=== PATIENT | male | born 1965 | race African-American/Black ===

== ENCOUNTER 2021-01-31 02:25 | Inpatient (IN) | payer OTHER ==
[2021-01-31 09:17] VITALS: BMI 24.5
[2021-01-31] MEDS ORDERED: LOPERAMIDE HCL 2 MG CAPSULE PO PRN (14:04)
[2021-01-31] MEDS ORDERED: guaiFENesin 200 MG/10 ML 10 ML UNIT-DOSE CUPS PO PRN (14:04)
[2021-01-31] MEDS ORDERED: ACETAMINOPHEN 325 MG TABLET (FP) PO PRN (14:04)
[2021-01-31] MEDS ORDERED: MAGNESIUM CITRATE 300 ML BOTTLE PO PRN (14:04)
[2021-01-31] MEDS ORDERED: P-EPHED 60MG/TRIPROLIDI 2.5MG TABLET PO PRN (14:04)
[2021-01-31] MEDS ORDERED: MAGNESIUM HYDROX 2400MG/30ML ORAL SUSPENSION 30 ML CUP PO PRN (14:04)
[2021-01-31] MEDS ORDERED: NICOTINE POLACRILEX 2 MG GUM BUC PRN (14:04)
[2021-01-31] MEDS ORDERED: MAG HYDROX/AL HYDROX/SIMETH 30 ML UNIT-DOSE CUP PO PRN (14:04)
[2021-01-31] MEDS ORDERED: PT OWN MED DRAWER 7, Y5N ONE (14:57)
[2021-01-31] MEDS ORDERED: MASKS NR ONE (14:58)
[2021-01-31] MEDS: PRENATAL VITAMINS W/ FOLIC ACID TABLET (FP) PO SCH (15:12)
[2021-01-31 17:12] LABS: HEMATOCRIT 38.7 % (35.4-49); HEMOGLOBIN 12.7 GM/dL (11.7-16.9); MCH 31.1 pg (25.7-33.7); MCHC 32.8 g/dl (32.0-35.9); MEAN CELL VOLUME 94.7 fl (80-96); MEAN PLT VOLUME 9.1 fl (7.5-11.1); PLATELET COUNT 254 K/MM3 (134-434); RBC 4.09 M/mm3 (4.00-5.60); RDW 14.8 % (11.9-15.9); WHITE BLOOD COUNT 4.8 K/mm3 (4.0-10.0)
[2021-01-31 17:15] LABS: ALBUMIN 3.5 g/dl (3.4-5.0); BLOOD UREA NITROGEN 19.2 mg/dL (7-18); CALCIUM 9.2 mg/dL (8.5-10.1)
[2021-01-31 17:18] LABS: CREATININE 1.3 mg/dL (0.55-1.3)
[2021-01-31 17:20] LABS: BILIRUBIN,TOTAL 0.4 mg/dL (0.2-1)
[2021-01-31] MEDS: hydrOXYzine PAMOATE 25 MG CAPSULE (FP) PO SCH ×2 (18:30→21:03)
[2021-01-31] MEDS: MELATONIN 5 MG TABLETS PO SCH (21:03)
[2021-01-31] MEDS: THIAMINE HCL 100 MG TABLET (FP) PO SCH (21:03)
[2021-02-01] MEDS: hydrOXYzine PAMOATE 25 MG CAPSULE (FP) PO SCH ×2 (06:22→09:37)
[2021-02-01] MEDS: PRENATAL VITAMINS W/ FOLIC ACID TABLET (FP) PO SCH (09:36)
[2021-02-01] MEDS: NICOTINE 7 MG/24 HOURS TOPICAL PATCH TD SCH (09:37)
[2021-02-01] MEDS ORDERED: hydrOXYzine PAMOATE 25 MG CAPSULE (FP) PO PRN (10:16)
[2021-02-01 11:00] LABS: URINE APPEARANCE CLEAR; URINE BILIRUBIN NEGATIVE (NEGATIVE); URINE COLOR YELLOW; URINE GLUCOSE (UA) NEGATIVE (NEGATIVE); URINE KETONE NEGATIVE (NEGATIVE); URINE LEUK ESTERASE NEGATIVE (NEGATIVE); URINE NITRITE NEGATIVE (NEGATIVE); URINE PROTEIN NEGATIVE (NEGATIVE)
[2021-02-01] MEDS: MELATONIN 5 MG TABLETS PO SCH (22:35)
[2021-02-01] MEDS: THIAMINE HCL 100 MG TABLET (FP) PO SCH (22:35)
[2021-02-02] MEDS: PRENATAL VITAMINS W/ FOLIC ACID TABLET (FP) PO SCH (09:53)
[2021-02-02] MEDS: NICOTINE 7 MG/24 HOURS TOPICAL PATCH TD SCH (10:13)
[2021-02-02] MEDS: THIAMINE HCL 100 MG TABLET (FP) PO SCH (21:10)
[2021-02-02] MEDS: MELATONIN 5 MG TABLETS PO SCH (21:10)
[2021-02-03] MEDS: NICOTINE 7 MG/24 HOURS TOPICAL PATCH TD SCH (09:44)
[2021-02-03] MEDS: PRENATAL VITAMINS W/ FOLIC ACID TABLET (FP) PO SCH (09:44)
[2021-02-03] MEDS: MELATONIN 5 MG TABLETS PO SCH (21:53)
[2021-02-03] MEDS: THIAMINE HCL 100 MG TABLET (FP) PO SCH (21:53)
[2021-02-04] MEDS: PRENATAL VITAMINS W/ FOLIC ACID TABLET (FP) PO SCH (09:43)
[2021-02-04] MEDS: NICOTINE 7 MG/24 HOURS TOPICAL PATCH TD SCH (09:44)
[2021-02-04 14:07] LABS: SARS-CoV-2 NAA Not Detected (Not Detected)
[2021-02-04] MEDS: THIAMINE HCL 100 MG TABLET (FP) PO SCH (21:00)
[2021-02-04] MEDS: MELATONIN 5 MG TABLETS PO SCH (21:00)
[2021-02-05] MEDS: NICOTINE 7 MG/24 HOURS TOPICAL PATCH TD SCH (09:52)
[2021-02-05] MEDS: PRENATAL VITAMINS W/ FOLIC ACID TABLET (FP) PO SCH (09:52)
[2021-02-05] MEDS: MELATONIN 5 MG TABLETS PO SCH (21:40)
[2021-02-05] MEDS: THIAMINE HCL 100 MG TABLET (FP) PO SCH (21:40)
[2021-02-06] MEDS: PRENATAL VITAMINS W/ FOLIC ACID TABLET (FP) PO SCH (10:04)
[2021-02-06] MEDS: NICOTINE 7 MG/24 HOURS TOPICAL PATCH TD SCH (10:04)
[2021-02-06] MEDS: THIAMINE HCL 100 MG TABLET (FP) PO SCH (21:04)
[2021-02-06] MEDS: MELATONIN 5 MG TABLETS PO SCH (21:04)
[2021-02-07] MEDS: NICOTINE 7 MG/24 HOURS TOPICAL PATCH TD SCH (09:56)
[2021-02-07] MEDS: PRENATAL VITAMINS W/ FOLIC ACID TABLET (FP) PO SCH (09:56)
[2021-02-07] MEDS: MELATONIN 5 MG TABLETS PO SCH (21:34)
[2021-02-07] MEDS: THIAMINE HCL 100 MG TABLET (FP) PO SCH (21:34)
[2021-02-08] MEDS: PRENATAL VITAMINS W/ FOLIC ACID TABLET (FP) PO SCH (10:06)
[2021-02-08] MEDS: NICOTINE 7 MG/24 HOURS TOPICAL PATCH TD SCH (10:06)
[2021-02-08] MEDS: MELATONIN 5 MG TABLETS PO SCH (21:03)
[2021-02-08] MEDS: THIAMINE HCL 100 MG TABLET (FP) PO SCH (21:03)
[2021-02-09] MEDS: PRENATAL VITAMINS W/ FOLIC ACID TABLET (FP) PO SCH (10:55)
[2021-02-09] MEDS: NICOTINE 7 MG/24 HOURS TOPICAL PATCH TD SCH (10:56)
[2021-02-09] MEDS: THIAMINE HCL 100 MG TABLET (FP) PO SCH (21:27)
[2021-02-09] MEDS: MELATONIN 5 MG TABLETS PO SCH (21:27)
[2021-02-10] MEDS: PRENATAL VITAMINS W/ FOLIC ACID TABLET (FP) PO SCH (09:49)
[2021-02-10] MEDS: NICOTINE 7 MG/24 HOURS TOPICAL PATCH TD SCH (09:49)
[2021-02-10] MEDS ORDERED: MASKS NR ONE (17:27)
[2021-02-10] MEDS: IBUPROFEN 400 MG TABLET (FP) PO PRN (18:34)
[2021-02-10] MEDS: MELATONIN 5 MG TABLETS PO SCH (21:48)
[2021-02-10] MEDS: THIAMINE HCL 100 MG TABLET (FP) PO SCH (21:48)
[2021-02-11] MEDS: PRENATAL VITAMINS W/ FOLIC ACID TABLET (FP) PO SCH (09:52)
[2021-02-11] MEDS: NICOTINE 7 MG/24 HOURS TOPICAL PATCH TD SCH (09:53)
[2021-02-11] MEDS: THIAMINE HCL 100 MG TABLET (FP) PO SCH (21:35)
[2021-02-11] MEDS: MELATONIN 5 MG TABLETS PO SCH (21:35)
[2021-02-12] MEDS: NICOTINE 7 MG/24 HOURS TOPICAL PATCH TD SCH (10:00)
[2021-02-12] MEDS: PRENATAL VITAMINS W/ FOLIC ACID TABLET (FP) PO SCH (10:00)
[2021-02-12] MEDS: THIAMINE HCL 100 MG TABLET (FP) PO SCH (21:09)
[2021-02-12] MEDS: MELATONIN 5 MG TABLETS PO SCH (21:09)
[2021-02-13] MEDS: PRENATAL VITAMINS W/ FOLIC ACID TABLET (FP) PO SCH (09:36)
[2021-02-13] MEDS: NICOTINE 7 MG/24 HOURS TOPICAL PATCH TD SCH (09:37)
[2021-02-13] MEDS: THIAMINE HCL 100 MG TABLET (FP) PO SCH (21:08)
[2021-02-13] MEDS: MELATONIN 5 MG TABLETS PO SCH (21:09)
[2021-02-14] MEDS: PRENATAL VITAMINS W/ FOLIC ACID TABLET (FP) PO SCH (09:48)
[2021-02-14] MEDS: NICOTINE 7 MG/24 HOURS TOPICAL PATCH TD SCH (09:49)
[2021-02-14] MEDS: THIAMINE HCL 100 MG TABLET (FP) PO SCH (21:28)
[2021-02-14] MEDS: MELATONIN 5 MG TABLETS PO SCH (21:29)
[2021-02-15] MEDS: PRENATAL VITAMINS W/ FOLIC ACID TABLET (FP) PO SCH (09:47)
[2021-02-15] MEDS: NICOTINE 7 MG/24 HOURS TOPICAL PATCH TD SCH (09:47)
[2021-02-15] MEDS: MELATONIN 5 MG TABLETS PO SCH (21:03)
[2021-02-15] MEDS: THIAMINE HCL 100 MG TABLET (FP) PO SCH (21:03)
[2021-02-16] MEDS: PRENATAL VITAMINS W/ FOLIC ACID TABLET (FP) PO SCH (09:47)
[2021-02-16] MEDS: NICOTINE 7 MG/24 HOURS TOPICAL PATCH TD SCH (09:47)
[2021-02-16] MEDS: THIAMINE HCL 100 MG TABLET (FP) PO SCH (21:05)
[2021-02-16] MEDS: MELATONIN 5 MG TABLETS PO SCH (21:05)
[2021-02-17] MEDS: PRENATAL VITAMINS W/ FOLIC ACID TABLET (FP) PO SCH (09:47)
[2021-02-17] MEDS: NICOTINE 7 MG/24 HOURS TOPICAL PATCH TD SCH (09:47)
[2021-02-17] MEDS: THIAMINE HCL 100 MG TABLET (FP) PO SCH (21:04)
[2021-02-17] MEDS: MELATONIN 5 MG TABLETS PO SCH (21:04)
[2021-02-18] MEDS: PRENATAL VITAMINS W/ FOLIC ACID TABLET (FP) PO SCH (09:31)
[2021-02-18] MEDS: NICOTINE 7 MG/24 HOURS TOPICAL PATCH TD SCH (09:31)
[2021-02-18] MEDS: MELATONIN 5 MG TABLETS PO SCH (21:03)
[2021-02-18] MEDS: THIAMINE HCL 100 MG TABLET (FP) PO SCH (21:03)
[2021-02-19] MEDS: NICOTINE 7 MG/24 HOURS TOPICAL PATCH TD SCH (09:40)
[2021-02-19] MEDS: PRENATAL VITAMINS W/ FOLIC ACID TABLET (FP) PO SCH (09:40)
[2021-02-19] MEDS: THIAMINE HCL 100 MG TABLET (FP) PO SCH (21:01)
[2021-02-19] MEDS: MELATONIN 5 MG TABLETS PO SCH (21:01)
[2021-02-20] MEDS: PRENATAL VITAMINS W/ FOLIC ACID TABLET (FP) PO SCH (09:41)
[2021-02-20] MEDS: NICOTINE 7 MG/24 HOURS TOPICAL PATCH TD SCH (09:41)
[2021-02-20] MEDS: MELATONIN 5 MG TABLETS PO SCH (21:38)
[2021-02-20] MEDS: THIAMINE HCL 100 MG TABLET (FP) PO SCH (21:38)
[2021-02-21] MEDS: NICOTINE 7 MG/24 HOURS TOPICAL PATCH TD SCH (09:44)
[2021-02-21] MEDS: PRENATAL VITAMINS W/ FOLIC ACID TABLET (FP) PO SCH (09:44)
[2021-02-21] MEDS: MELATONIN 5 MG TABLETS PO SCH (21:04)
[2021-02-21] MEDS: IBUPROFEN 400 MG TABLET (FP) PO PRN (21:04)
[2021-02-21] MEDS: THIAMINE HCL 100 MG TABLET (FP) PO SCH (21:04)
[2021-02-22] MEDS: PRENATAL VITAMINS W/ FOLIC ACID TABLET (FP) PO SCH (09:43)
[2021-02-22] MEDS: NICOTINE 7 MG/24 HOURS TOPICAL PATCH TD SCH (09:44)
[2021-02-22] MEDS: THIAMINE HCL 100 MG TABLET (FP) PO SCH (21:32)
[2021-02-22] MEDS: MELATONIN 5 MG TABLETS PO SCH (21:32)
[2021-02-23] MEDS: NICOTINE 7 MG/24 HOURS TOPICAL PATCH TD SCH (09:53)
[2021-02-23] MEDS: PRENATAL VITAMINS W/ FOLIC ACID TABLET (FP) PO SCH (09:53)
[2021-02-23] MEDS: MELATONIN 5 MG TABLETS PO SCH (21:13)
[2021-02-23] MEDS: THIAMINE HCL 100 MG TABLET (FP) PO SCH (21:13)
[2021-02-23] MEDS: IBUPROFEN 400 MG TABLET (FP) PO PRN (21:13)
[2021-02-24] MEDS: NICOTINE 7 MG/24 HOURS TOPICAL PATCH TD SCH (10:00)
[2021-02-24] MEDS: PRENATAL VITAMINS W/ FOLIC ACID TABLET (FP) PO SCH (10:00)
[2021-02-24] MEDS: IBUPROFEN 400 MG TABLET (FP) PO PRN (19:47)
[2021-02-24] MEDS: THIAMINE HCL 100 MG TABLET (FP) PO SCH (21:42)
[2021-02-24] MEDS: MELATONIN 5 MG TABLETS PO SCH (21:42)
[2021-02-25] MEDS: NICOTINE 7 MG/24 HOURS TOPICAL PATCH TD SCH (09:52)
[2021-02-25] MEDS: PRENATAL VITAMINS W/ FOLIC ACID TABLET (FP) PO SCH (09:52)
[2021-02-25] MEDS: MELATONIN 5 MG TABLETS PO SCH (21:46)
[2021-02-25] MEDS: THIAMINE HCL 100 MG TABLET (FP) PO SCH (21:46)
[2021-02-26] MEDS: NICOTINE 7 MG/24 HOURS TOPICAL PATCH TD SCH (10:19)
[2021-02-26] MEDS: PRENATAL VITAMINS W/ FOLIC ACID TABLET (FP) PO SCH (10:19)
[2021-02-26] MEDS: THIAMINE HCL 100 MG TABLET (FP) PO SCH (21:03)
[2021-02-26] MEDS: MELATONIN 5 MG TABLETS PO SCH (21:03)
[2021-02-27] MEDS: PRENATAL VITAMINS W/ FOLIC ACID TABLET (FP) PO SCH (09:41)
[2021-02-27] MEDS: NICOTINE 7 MG/24 HOURS TOPICAL PATCH TD SCH (09:41)
[2021-02-27] MEDS: MELATONIN 5 MG TABLETS PO SCH (21:32)
[2021-02-27] MEDS: THIAMINE HCL 100 MG TABLET (FP) PO SCH (21:32)
[2021-02-28] MEDS: NICOTINE 7 MG/24 HOURS TOPICAL PATCH TD SCH (09:39)
[2021-02-28] MEDS: PRENATAL VITAMINS W/ FOLIC ACID TABLET (FP) PO SCH (09:39)
[2021-02-28] MEDS: MELATONIN 5 MG TABLETS PO SCH (21:03)
[2021-02-28] MEDS: THIAMINE HCL 100 MG TABLET (FP) PO SCH (21:03)
[2021-03-01 06:49] VITALS: BP 140/89; PULSE 65; TEMP 97.9
[2021-03-01] MEDS: PRENATAL VITAMINS W/ FOLIC ACID TABLET (FP) PO SCH (09:18)
[2021-03-01] MEDS: NICOTINE 7 MG/24 HOURS TOPICAL PATCH TD SCH (09:19)
== END 2021-03-01 09:50 | disposition home or self-care (01) | DRG 772 ==
LOC: YASAS 02:25 → Y3W 12:59
PROVIDERS: ADMIT Allergy & Immunology; ATTEND Allergy & Immunology
PROC: HZ42ZZZ Group Counseling for Substance Abuse Treatment, Cognitive-Behavioral (ICD-10-PCS; principal; 2021-01-31)
DX: F14.20 Cocaine dependence, uncomplicated (principal); F17.211 Nicotine dependence, cigarettes, in remission; F32.9 Major depressive disorder, single episode, unspecified; K40.90 Unilateral inguinal hernia, without obstruction or gangrene, not specified as recurrent; Z91.018 Allergy to other foods; Z91.010 Allergy to peanuts; Z59.0 Homelessness
CPT/HCPCS: 36415; 80053; 81003; 85027; 86480; 86780; C9803; U0003; U0005